=== PATIENT | male | born 1950 | race Caucasian/White ===

== ENCOUNTER → 2019-04-29 | Outpatient (CLI) | payer OTHER ==
--- NOTE | 2019-04-29 20:59 | RAD ---
Exam: Ultrasound left lower extremity arterial duplex Indication: Pain Technique: Real-time grayscale and color Doppler images of the left lower extremity were obtained by the department photofinishing laboratory worker. Spectral Doppler images were obtained. Comparisons: None FINDINGS: Peak systolic velocities as follows (cm/second) ODD BUNDLE WORKER: 81 DFA: 54 SFA proximal: 81 SFA mid: 59 SFA distal: 77 Popliteal: 75 POWER PLANT INSPECTOR proximal: 81 POWER PLANT INSPECTOR distal: 92 Peroneal: 60 TACOS: 61 DPA: 39 Triphasic waveforms noted throughout the left lower leg arterial vasculature. IMPRESSION: Patent left lower extremity arterial vasculature without evidence of stenosis. Electronically signed by: Elin Latif MD (04/29/2019 8:56 PM) [id number]
--- NOTE | 2019-04-29 21:00 | RAD ---
Exam: Left lower extremity venous duplex study INDICATION: Pain TECHNIQUE: Using a combination of real-time ultrasound imaging and color-flow and pulse Doppler imaging techniques along with graded compression and augmentation, duplex evaluation of the deep venous systems of leftlower extremity was performed. Multiple images were obtained. Findings: There is no sonographic evidence for deep venous thrombosis involving the visualized deep venous structures of the left lower extremity. IMPRESSION: No acute DVT in the left lower extremities. Electronically signed by: Elin Latif MD (04/29/2019 8:57 PM) [id number]
== END | disposition home or self-care (01) ==
LOC: US 18:42
PROVIDERS: ATTEND Internal Medicine
DX: M79.605 Pain in left leg (principal)
CPT/HCPCS: 93923; 93971